=== PATIENT | male | born 1990 | race Caucasian/White ===

== ENCOUNTER 2016-10-07 22:25 | Emergency (ER) | payer OTHER ==
[~2016-10-07] VITALS: Ht 182.9 cm; Wt 82.8 kg
[~2016-10-07 22:25] MED LIST: MELO15TA3 PO
[2016-10-07 22:29] VITALS: Ht 182.9 cm; Wt 82.8 kg
[2016-10-07] MEDS ORDERED: SODIUM CHLORIDE 0.9% 1000ML 1,000 ML IV STA ×2 (22:34)
[2016-10-07 22:59] LABS: BASO % 0.3 %; BASO ABS # 0.03 K/uL (0-0.2); COMPLETE YES; EOS % 2.6 %; HEMATOCRIT 42.5 % (42-52); IG% 0.2 %; LYMPH % 34.2 %; LYMPH ABS # 3.89 K/uL (1.2-3.4); MEAN CELL VOLUME 85.9 fL (80-100); MEAN CORPUSCULAR HEMOGLOBIN 29.7 pg (25-34); MEAN CORPUSCULAR HGB CONC 34.6 g/dl (32-36); MEAN PLATELET VOLUME 9.9 fL (7.4-10.4); MONO % 9.6 %; NEUT % 53.1 %; PLATELET COUNT 206 K/uL (130-400); RED BLOOD COUNT 4.95 M/uL (4.7-6.1); WHITE BLOOD COUNT 11.36 K/uL (4.8-10.8)
[2016-10-07 23:10] LABS: INR 0.9 (0.9-1.1); PARTIAL THROMBOPLASTIN RATIO 1.1; PROTHROMBIN TIME (PATIENT) 10.1 SECONDS (9.0-12.0)
[2016-10-07 23:19] LABS: BUN/CREATININE RATIO 17.6 (10-20); CALCIUM 9.3 mg/dl (8.5-10.1); CREATININE 1.4 mg/dl (0.60-1.40); POTASSIUM 3.7 mmol/L (3.5-5.1)
[2016-10-07 23:39] LABS: URINE APPEARANCE CLEAR (CLEAR); URINE BILIRUBIN NEG (NEG); URINE COLOR YELLOW; URINE NITRITE NEG (NEG); URINE PH 5.5 (4.5-7.5); URINE SPECIFIC GRAVITY 1.025 (1.000-1.030); UROBILINOGEN NEG (NEG); ZZUR CULT IF INDIC CLEAN CATCH NO
[2016-10-07 23:40] LABS: MANUAL MICROSCOPIC REQUIRED? NO; REVIEW REQ? NO
[2016-10-07] MEDS ORDERED: OPTIRAY 320 IV PRN (23:45)
[2016-10-07] MEDS ORDERED: MoRPHine SULFATE 4 MG/ML 1 ML CARP\\VIAL IV STA (23:53)
[2016-10-07] MEDS ORDERED: ONDANSETRON INJ 2 MG/ML 2 ML VIAL IV STA (23:53)
[2016-10-08] MEDS ORDERED: CITA40TA12 PO (00:13)
[2016-10-08] MEDS ORDERED: QUET1TAB34 PO (00:15)
[2016-10-08] MEDS ORDERED: LORA-741 PO (00:15)
[2016-10-08] MEDS ORDERED: SUMA100T16 PO (00:16)
[2016-10-08] MEDS ORDERED: VNTHFA/IN INH (00:17)
[2016-10-08] MEDS ORDERED: PRAZ1CAP10 PO (00:18)
[2016-10-08] MEDS ORDERED: CEFTRIAXONE SOD INJ 1 GM ADDVIAL IV STA (01:04)
[2016-10-08] MEDS ORDERED: SULF800T23 PO (01:09)
--- NOTE | 2016-10-08 01:12 | EMERGENCY ROOM VISIT NOTE ---
History First contact with patient: 22:31 Chief Complaint: HEMATURIA Stated Complaint: ABDOMINAL PAIN, URINATING BLOOD Nursing Triage Summary: Hematuria and abdominal pain that started today. History of Present Illness The patient is a 26 year old male who presents to the Emergency Room with complaints of hematuria with suprapubic discomfort for the past day. Patient states she's been having gross hematuria for the past day. He is and working a lot outside for the past 2 days. He does yard work for a living. Patient does smoke. No history of similar symptoms in the past. Patient denies chest pain, dyspnea, back pain, testicular pain, penile pain, fever, chills, IV drug abuse. Patient denies risk for STI's. Review of Systems See HPI for pertinent positives & negatives. A total of 10 systems reviewed and were otherwise negative. Past Medical/Surgical History Medical Problems: (1) Chronic back pain (2) Pain, dental Asthma Social History Smoking Status: Current Every Day Smoker Alcohol Use: occasionally Drug Use: none Marital Status: Housing Status: lives with family Occupation Status: employed Current/Historical Medications Scheduled Citalopram Hydrobromide (Celexa), 40 MG PO DAILY Lorazepam (Ativan), 0.5 MG PO Q6H Prazosin Hcl (Prazosin), 1 MG PO QPM Quetiapine Fumarate (Seroquel), 100 MG PO HS Sulfa/Trimethoprim (Bactrim Ds 800MG/160MG), 1 TAB PO BID Sumatriptan Succinate (Imitrex), 100 MG PO PRN/UD Scheduled PRN Albuterol Hfa (Ventolin Hfa), 2 PUFFS INH Q6H PRN for SOB/Wheezing Allergies Coded Allergies: No Known Allergies (Unverified , 10/07/16) Physical Exam Vital Signs Date Time Temp Pulse Resp B/P (MAP) Pulse Ox O2 Delivery O2 Flow Rate FiO2 10/08/16 01:37 37.0 72 16 128/74 97 10/08/16 00:00 92 16 126/68 97 Room Air 10/07/16 22:29 36.7 103 16 136/80 96 Room Air Physical Exam VITALS: Vitals are noted on the nurse's note and reviewed by myself. Vital signs stable. GENERAL: Pleasant male, in no acute distress, nondiaphoretic, well-developed well-nourished. SKIN: The skin was without rashes, erythema, edema, or bruising. There is no tenting of the skin. Capillary reflex less than 2 seconds. HEAD: Normocephalic atraumatic. EARS: External auditory canals clear, tympanic membranes pearly polo without erythema or effusion bilaterally. EYES: Pupils equal round and reactive to light and accommodation. Conjunctivae without injection, sclerae without icterus. Extraocular movements intact. NOSE: Patent, turbinates without inflammation or discharge. MOUTH: Mucous membranes moist. Pharynx without erythema or exudate. Uvula midline. Airway patent. Tongue does not deviate. NECK: Supple without nuchal rigidity. No lymphadenopathy. No thyromegaly. Cervical spine is nontender. No JVD. HEART: Regular rate and rhythm without murmurs gallops or rubs. LUNGS: Clear to auscultation bilaterally without wheezes, rales or rhonchi. No dullness to percussion. No retractions or accessory muscle use. ABDOMEN: Positive bowel sounds x 4. Normal tympanic percussion. Soft, minimal bladder discomfort, without masses or organomegaly. Morales sign negative. No guarding or rebound tenderness. No CVA tenderness MUSCULOSKELETAL: No muscle atrophy, erythema, or edema noted. NEURO: Patient was alert and oriented to person place and time. Normal sensation to light and sharp touch. No focal neurological deficits. Medical Decision & Procedures Laboratory Results 10/07/16 22:45 Red Blood Count 4.95, Mean Corpuscular Volume 85.9, Mean Corpuscular Hemoglobin 29.7, Mean Corpuscular Hemoglobin Concent 34.6, Mean Platelet Volume 9.9, Neutrophils (%) (Auto) 53.1, Lymphocytes (%) (Auto) 34.2, Monocytes (%) (Auto) 9.6, Eosinophils (%) (Auto) 2.6, Basophils (%) (Auto) 0.3, Neutrophils # (Auto) 6.03, Lymphocytes # (Auto) 3.89, Monocytes # (Auto) 1.09, Eosinophils # (Auto) 0.30, Basophils # (Auto) 0.03 10/07/16 22:45 Test 10/07/16 22:43 10/07/16 22:45 Urine Color YELLOW Urine Appearance CLEAR (CLEAR) Urine pH 5.5 (4.5-7.5) Urine Specific [place] 1.025 (1.000-1.030) Urine Protein TRACE (NEG) Urine Glucose (UA) NEG (NEG) Urine Ketones NEG (NEG) Urine Occult Blood 3+ (NEG) Urine Nitrite NEG (NEG) Urine Bilirubin NEG (NEG) Urine Urobilinogen NEG (NEG) Urine Leukocyte Esterase NEG (NEG) Urine WBC (Auto) 5-10 /hpf (0-5) Urine RBC (Auto) >30 /hpf (0-4) Urine Hyaline Casts (Auto) 1-5 /lpf (0-5) Urine Epithelial Cells (Auto) 10-20 /lpf (0-5) Urine Bacteria (Auto) NEG (NEG) White Blood Count 11.36 K/uL (4.8-10.8) Red Blood Count 4.95 M/uL (4.7-6.1) Hemoglobin 14.7 g/dL (14.0-18.0) Hematocrit 42.5 % (42-52) Mean Corpuscular Volume 85.9 fL (80-100) Mean Corpuscular Hemoglobin 29.7 pg (25-34) Mean Corpuscular Hemoglobin Concent 34.6 g/dl (32-36) Platelet Count 206 K/uL (130-400) Mean Platelet Volume 9.9 fL (7.4-10.4) Neutrophils (%) (Auto) 53.1 % Lymphocytes (%) (Auto) 34.2 % Monocytes (%) (Auto) 9.6 % Eosinophils (%) (Auto) 2.6 % Basophils (%) (Auto) 0.3 % Neutrophils # (Auto) 6.03 K/uL (1.4-6.5) Lymphocytes # (Auto) 3.89 K/uL (1.2-3.4) Monocytes # (Auto) 1.09 K/uL (0.11-0.59) Eosinophils # (Auto) 0.30 K/uL (0-0.5) Basophils # (Auto) 0.03 K/uL (0-0.2) RDW Standard Deviation 42.5 fL (36.4-46.3) RDW Coefficient of Variation 13.6 % (11.5-14.5) Immature Granulocyte % (Auto) 0.2 % Immature Granulocyte # (Auto) 0.02 K/uL (0.00-0.02) Prothrombin Time 10.1 SECONDS (9.0-12.0) Prothromb Time International Ratio 0.9 (0.9-1.1) Activated Partial Thromboplast Time 29.2 SECONDS (21.0-31.0) Partial Thromboplastin Ratio 1.1 Anion Gap 9.0 mmol/L (3-11) Est Creatinine Clear Calc Drug Dose 86.2 ml/min Estimated GFR () 78.7 Estimated GFR (Non- 67.9 BUN/Creatinine Ratio 17.6 (10-20) Calcium Level 9.3 mg/dl (8.5-10.1) Total Bilirubin 0.6 mg/dl (0.2-1) Direct Bilirubin 0.1 mg/dl (0-0.2) Aspartate Amino Transf (AST/SGOT) 95 U/L (15-37) Alanine Aminotransferase (ALT/SGPT) 153 U/L (12-78) Alkaline Phosphatase 88 U/L (45-117) Total Creatine Kinase 999 U/L (39-308) Total Protein 7.7 gm/dl (6.4-8.2) Albumin 4.0 gm/dl (3.4-5.0) Hepatitis B Surface Antigen NEG (NEG) Hepatitis C Antibody PRELIM POS (NEG) Medications Administered Medications (Trade) Dose Ordered Sig/Glenda Route Start Time Stop Time Status Last Admin Dose Admin Sodium Chloride 1,000 ml @ 999 mls/hr Q1H1M STAT IV 10/07/16 22:34 10/07/16 23:34 DC 10/07/16 22:46 999 MLS/HR Sodium Chloride 1,000 ml @ 125 mls/hr Q8H STAT IV 10/07/16 22:34 10/08/16 01:41 DC 10/07/16 23:59 125 MLS/HR Morphine Sulfate (MoRPHine SULFATE INJ) 4 mg NOW STAT IV 10/07/16 23:53 10/07/16 23:54 DC 10/07/16 23:59 4 MG Ondansetron HCl (Zofran Inj) 4 mg NOW STAT IV 10/07/16 23:53 10/07/16 23:54 DC 10/07/16 23:59 4 MG Ceftriaxone Sodium (Rocephin Inj) 1 gm NOW STAT IV 10/08/16 01:04 10/08/16 01:05 DC 10/08/16 01:11 1 GM Trimethoprim/ Sulfamethoxazole (Sulfameth/ Trimeth Ds 800/ 160MG Home Pack) 1 homepack UD ONCE PO 10/08/16 01:15 10/08/16 01:16 DC 10/08/16 01:34 1 HOMEPACK ED Course Prior records/ancillary studies reviewed and summarized above. Nursing notes reviewed. Additional history obtained from family. The patient's history was concerning for hematuria and suprapubic discomfort. Differential diagnosis: Etiologies such as rhabdomyolysis, kidney disease, bladder problem, metabolic, infection, hypo/hyperglycemia, electrolyte abnormalities, cardiac sources, intracerebral event, toxicologic, neurologic, as well as others were entertained. Physical examination: As above. ER treatment provided: IV Lock IV fluids On reassessment the patient felt better. Diagnostics interpretation by me: The labs revealed elevated CPK in LFTs. Hepatitis panel was ordered. Hepatitis C came back positive. Patient was still here. Patient does have a history of IV drug abuse. Nothing recent. He states he'll follow-up with his family care Dr. for the hepatitis C results. Urine shows hematuria with some white blood cells and culture was sent Imaging studies: CT ABDOMEN & PELVIS: Small peripheral regions of hypoenhancement of bilateral kidneys, suspicious for pyelonephritis. No hydronephrosis. Bladder is unremarkable. Mild periportal edema, nonspecific but considerations include fluid overload or liver disease/hepatitis. Spleen is mildly enlarged. No free air or free fluid. No evidence Exam and history seem consistent with pyelonephritis and positive hepatitis C. Patient is requesting to leave. I felt this is reasonable he was afebrile and nontoxic. He is well-appearing. He is tolerating fluids. He was offered admission. He was advised to see the family care doctor tomorrow or here in the ER sooner for fevers, vomiting, pain, worsening signs or symptoms or as needed. Patient was neurovascularly and neurologically intact. He is well- appearing. By the evaluation outlined above emergent etiologies such as electrolyte abnormalities, cardiac sources, intracerebral event, toxologic, neurologic, abnormalities blood glucose, metabolic, as well as others were deemed relatively unlikely. The pt informed about the findings as listed above. All questions were answered and pleased with the treatment. Return instructions were outlined and the patient was discharged in stable condition. Outpatient prescription management: Bactrim Referral: The patient was referred to primary care physician for follow-up in 4 hours for a recheck of the current condition. Case reviewed with my attending Medical Decision As above Impression Primary Impression: Pyelonephritis Departure Information Prescriptions Sulfa/Trimethoprim (Bactrim Ds 800MG/160MG) Tab 1 TAB PO BID for 7 Days, #14 TAB Prov: Rozina Mckeon PA-C 10/08/16 Referrals Michael Cast M.D. (PCP) Patient Instructions My [facility]
[2016-10-08] MEDS ORDERED: SEPTRA DS HOME PACK 1 EA VIAL PO ONE (01:15)
[2016-10-08 01:37] VITALS: BP 128/74; PULSE 72; TEMP 37; O2SAT 97
--- NOTE | 2016-10-08 07:03 | DIAGNOSTIC IMAGING REPORT ---
CT OF THE ABDOMEN AND PELVIS WITH CONTRAST CLINICAL HISTORY: Haematuria. Abdominal pain. COMPARISON STUDY: Renal ultrasound October 07, 2016. TECHNIQUE: Following IV administration of 117 mL of Optiray-320, axial images of the abdomen and pelvis were obtained from the lung bases to the proximal femurs. Images were reviewed in the axial, sagittal, and coronal planes. IV contrast was administered without complication. CT DOSE: 372.10 mGy.cm FINDINGS: Lung bases are clear. There is mild splenomegaly. Mild periportal edema is noted. There is no biliary or pancreatic ductal dilatation. There is no hydronephrosis. There are multiple hypoenhancing foci within each kidney. There is no perinephric infiltration. There is no renal abscess. Both nephrograms are heterogeneous. The caliber and wall thickness of small and large bowel are normal. The appendix is normal. There is no free fluid. There is no lymphadenopathy. Skeletal structures are unremarkable. IMPRESSION: 1. Heterogeneous bilateral nephrograms with multiple hypoenhancing foci within each kidney. The findings may reflect pyelonephritis but are nonspecific and the differential includes other etiologies such as interstitial nephritis. Findings could be correlated with urinalysis. No renal abscess. No hydronephrosis. 2. Mild splenomegaly. Electronically signed by: Jaun Dunn M.D. 10/08/2016 7:01 AM Dictated Date/Time: 10/08/2016 6:54 AM
--- NOTE | 2016-10-08 07:15 | DIAGNOSTIC IMAGING REPORT ---
ULTRASOUND KIDNEYS AND BLADDER CLINICAL HISTORY: Hematuria. Pelvic pain. COMPARISON STUDY: No priors. TECHNIQUE: Real-time, grayscale, and color flow sonography of the kidneys and bladder is performed. Images are reviewed in the transverse and longitudinal planes. FINDINGS: Kidneys: The kidneys are normal in size and echotexture. The right kidney measures 11.3 cm in length and the left kidney measures 10.8 cm in length. There is no hydronephrosis. No shadowing renal calculi are identified. There is no sonographic evidence of contour deforming renal mass lesion. No perinephric fluid is identified. Bladder: The bladder is decompressed and grossly unremarkable. Bilateral ureteral jets were seen. IMPRESSION: Unremarkable sonographic assessment of the kidneys and bladder. Electronically signed by: Tommy Gimenez M.D. 10/08/2016 7:13 AM Dictated Date/Time: 10/08/2016 7:12 AM
[2016-10-10 22:40] LABS: HEPATITIS C RNA TMA QUAL Detected
== END 2016-10-08 01:39 | disposition home or self-care (01) ==
LOC: C.EDB 22:26 → C.EDC 10-08 01:39
DX: N12 Tubulo-interstitial nephritis, not specified as acute or chronic (principal); M54.9 Dorsalgia, unspecified; G89.29 Other chronic pain; J45.909 Unspecified asthma, uncomplicated; F17.210 Nicotine dependence, cigarettes, uncomplicated; Z79.899 Other long term (current) drug therapy

== ENCOUNTER 2016-10-17 19:52 | Emergency (ER) | payer OTHER ==
[~2016-10-17] VITALS: Ht 182.9 cm; Wt 77.8 kg
[~2016-10-17 19:52] MED LIST changes: +CITA40TA12 PO; +LORA-741 PO; -MELO15TA3 PO; +PRAZ1CAP10 PO; +QUET1TAB34 PO; +SUMA100T16 PO; +VNTHFA/IN INH
[2016-10-17 19:56] VITALS: TEMP 36.8; Ht 182.9 cm; Wt 77.8 kg
[2016-10-17] MEDS ORDERED: ONDANSETRON INJ 2 MG/ML 2 ML VIAL IV STA ×2 (20:09→21:37)
[2016-10-17] MEDS ORDERED: SODIUM CHLORIDE 0.9% 1000ML 2,000 ML IV STA (20:09)
--- NOTE | 2016-10-17 20:22 | EMERGENCY ROOM VISIT NOTE ---
History Report prepared by Mary: Vee Sheffield Under the Supervision of: Dr. Lion Jimenez D.O. First contact with patient: 20:02 Chief Complaint: ABDOMINAL PAIN Stated Complaint: ABD PAIN,VOMITING History of Present Illness The patient is a 26 year old male who presents to the Emergency Room with complaints of persistent abdominal pain for the past 2 days. He is accompanied by his . He rates his pain as a 6/10 in severity. He denies any flank pain or back pain. The patient was seen here last week for similar symptoms, as well as hematuria, and was diagnosed with a kidney infection and prescribed Bactrim. He states since then, his pain has not improved and he has also been vomiting for the past 2 days. He denies any recent dysuria or hematuria. He denies any recent ETOH use but admits to a history of Hepatitis C and states he does not currently take medication for it. The patient admits to some recent chills but denies any fevers. He notes he does not currently have a PCP as he was recently discharged from Dr. Garza's service. 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 A total of 10 systems reviewed and were otherwise negative. Past Medical & Surgical Medical Problems: (1) Chronic back pain (2) Hepatitis C (3) Pain, dental Social History Smoking Status: Current Every Day Smoker Alcohol Use: occasionally Drug Use: none Marital Status: Housing Status: lives with family Occupation Status: employed Current/Historical Medications Scheduled Citalopram Hydrobromide (Celexa), 40 MG PO DAILY Lorazepam (Ativan), 0.5 MG PO Q6H Ondasetron Odt (Zofran Odt), 4 MG SL Q6H Prazosin Hcl (Prazosin), 1 MG PO QPM Quetiapine Fumarate (Seroquel), 100 MG PO HS Sumatriptan Succinate (Imitrex), 100 MG PO PRN/UD Scheduled PRN Albuterol Hfa (Ventolin Hfa), 2 PUFFS INH Q6H PRN for SOB/Wheezing Allergies Coded Allergies: No Known Allergies (Unverified , 10/07/16) Physical Exam Vital Signs Date Time Temp Pulse Resp B/P (MAP) Pulse Ox O2 Delivery O2 Flow Rate FiO2 10/17/16 22:27 70 16 117/76 98 10/17/16 21:34 64 16 132/77 99 Room Air 10/17/16 21:00 57 10/17/16 19:56 36.8 82 20 145/82 97 Room Air Physical Exam GENERAL: Patient is awake, alert, somewhat anxious appearing and uncomfortable. The patient appears to be in some distress. EYES: The conjunctivae are clear. The pupils are round and reactive. EARS, NOSE, MOUTH AND THROAT: The nose is without any evidence of any deformity. Mucous membranes are moist tongue is midline NECK: The neck is nontender and supple. RESPIRATORY: Normal respiratory effort is noted there is no evidence of wheezing rhonchi or rales CARDIOVASCULAR: Regular rate and rhythm noted there no murmurs rubs or gallops normal S1 normal S2 GASTROINTESTINAL: The abdomen is soft. Bowel sounds are present in all quadrants. Abdomen is nontender MUSCULOSKELETAL/EXTREMITIES: There is no evidence of gross deformity full range of motion is noted in the hips and shoulders SKIN: There is no obvious evidence of any rash. There are no petechiae, pallor or cyanosis noted. NEUROLOGIC: Patient is awake alert and oriented x3 Medical Decision & Procedures ER Provider Diagnostic Interpretation: Radiology results as stated below per my review and radiologist interpretation: PA CHEST RADIOGRAPH AND UPRIGHT AND SUPINE AP RADIOGRAPHS OF THE ABDOMEN CLINICAL HISTORY: Abdominal pain, vomiting and diarrhea. COMPARISON STUDY: CT of the abdomen and pelvis October 08, 2016. FINDINGS: Lung volumes are normal. There is no pneumothorax or pleural effusion. No consolidation is identified. Cardiac size is normal. Mediastinal contours are normal. There is no evidence of pulmonary edema. There is no free air. The bowel gas pattern is normal. A phlebolith within the pelvis is noted. IMPRESSION: 1. No free air or evidence of bowel obstruction. 2. No acute cardiopulmonary findings. Electronically signed by: Jaun Dunn M.D. 10/17/2016 9:00 PM Laboratory Results 10/17/16 20:16 Red Blood Count 5.54, Mean Corpuscular Volume 87.7, Mean Corpuscular Hemoglobin 30.0, Mean Corpuscular Hemoglobin Concent 34.2, Mean Platelet Volume 10.0, Neutrophils (%) (Auto) 44.9, Lymphocytes (%) (Auto) 45.2, Monocytes (%) (Auto) 6.2, Eosinophils (%) (Auto) 3.2, Basophils (%) (Auto) 0.3, Neutrophils # (Auto) 4.96, Lymphocytes # (Auto) 5.00, Monocytes # (Auto) 0.69, Eosinophils # (Auto) 0.35, Basophils # (Auto) 0.03 10/17/16 20:16 Test 10/17/16 20:16 10/17/16 21:35 White Blood Count 11.05 K/uL (4.8-10.8) Red Blood Count 5.54 M/uL (4.7-6.1) Hemoglobin 16.6 g/dL (14.0-18.0) Hematocrit 48.6 % (42-52) Mean Corpuscular Volume 87.7 fL (80-100) Mean Corpuscular Hemoglobin 30.0 pg (25-34) Mean Corpuscular Hemoglobin Concent 34.2 g/dl (32-36) Platelet Count 275 K/uL (130-400) Mean Platelet Volume 10.0 fL (7.4-10.4) Neutrophils (%) (Auto) 44.9 % Lymphocytes (%) (Auto) 45.2 % Monocytes (%) (Auto) 6.2 % Eosinophils (%) (Auto) 3.2 % Basophils (%) (Auto) 0.3 % Neutrophils # (Auto) 4.96 K/uL (1.4-6.5) Lymphocytes # (Auto) 5.00 K/uL (1.2-3.4) Monocytes # (Auto) 0.69 K/uL (0.11-0.59) Eosinophils # (Auto) 0.35 K/uL (0-0.5) Basophils # (Auto) 0.03 K/uL (0-0.2) RDW Standard Deviation 44.3 fL (36.4-46.3) RDW Coefficient of Variation 13.7 % (11.5-14.5) Immature Granulocyte % (Auto) 0.2 % Immature Granulocyte # (Auto) 0.02 K/uL (0.00-0.02) Red Blood Cell Morphology Unremarkable Anion Gap 7.0 mmol/L (3-11) Est Creatinine Clear Calc Drug Dose 100.6 ml/min Estimated GFR () 94.8 Estimated GFR (Non- 81.8 BUN/Creatinine Ratio 8.7 (10-20) Calcium Level 9.6 mg/dl (8.5-10.1) Total Bilirubin 0.5 mg/dl (0.2-1) Direct Bilirubin 0.1 mg/dl (0-0.2) Aspartate Amino Transf (AST/SGOT) 53 U/L (15-37) Alanine Aminotransferase (ALT/SGPT) 110 U/L (12-78) Alkaline Phosphatase 81 U/L (45-117) Total Creatine Kinase 120 U/L (39-308) Total Protein 8.8 gm/dl (6.4-8.2) Albumin 4.1 gm/dl (3.4-5.0) Lipase 199 U/L (73-393) Urine Color DK YELLOW Urine Appearance CLEAR (CLEAR) Urine pH 6.5 (4.5-7.5) Urine Specific [place] 1.028 (1.000-1.030) Urine Protein NEG (NEG) Urine Glucose (UA) NEG (NEG) Urine Ketones TRACE (NEG) Urine Occult Blood NEG (NEG) Urine Nitrite NEG (NEG) Urine Bilirubin NEG (NEG) Urine Urobilinogen NEG (NEG) Urine Leukocyte Esterase NEG (NEG) Laboratory results per my review. Medications Administered Medications (Trade) Dose Ordered Sig/Glenda Route Start Time Stop Time Status Last Admin Dose Admin Ondansetron HCl (Zofran Inj) 4 mg NOW STAT IV 10/17/16 20:09 10/17/16 20:11 DC 10/17/16 20:35 4 MG Sodium Chloride 2,000 ml @ 999 mls/hr Q2H1M STAT IV 10/17/16 20:09 10/17/16 22:09 DC 10/17/16 20:35 999 MLS/HR Ondansetron HCl (Zofran Inj) 4 mg NOW STAT IV 10/17/16 21:37 10/17/16 21:38 DC 10/17/16 21:41 4 MG Morphine Sulfate (MoRPHine SULFATE INJ) 4 mg Q15M PRN IV 10/17/16 21:45 10/17/16 22:54 DC 10/17/16 21:41 4 MG Ondansetron HCl (ZOFRAN ODT 4MG Home Pack) 1 homepack UD ONCE PO 10/17/16 22:15 10/17/16 22:16 DC 10/17/16 22:24 1 HOMEPACK ED Course 2007: The patient was evaluated in room C7. A complete history and physical examination were performed. 2008: NSS 2000 ml @ 999 mls/hr IV, Zofran 4 mg IV. 2136: Zofran 4 mg IV. 2144: Morphine Sulfate 4 mg IV. 2154: I reevaluated the patient. He is feeling much better. I discussed his results and discharge instructions and he and his verbalized complete understanding and agreement. 5: Zofran 4 mg 1 homepack PO. Medical Decision Medication Reconciliation: I attest that I have personally reviewed the patient' s current medications list. Patient was found to have a slightly elevated blood pressure due to circumstances. I do not believe that the patient requires hypertension monitoring. Prior records/ancillary studies reviewed. Triage Nursing notes reviewed. The patient's history was concerning for abdominal pain. Differential diagnosis: Etiologies such as appendicitis, diverticulitis, PUD, biliary pathology, UTI, pancreatitis, obstruction, mesenteric ischemia, aortic pathology, infections, inflammatory bowel disease, renal colic, as well as others were entertained. The patient is a 26-year-old male who presented to the emergency department for an evaluation of nausea vomiting. The patient was seen in our facility recently with similar complaints. At that time he was found have some abnormalities with his kidneys and as well as hematuria. The patient does not have a follow-up scheduled appointment. I discussed patient's laboratory and radiographic studies with him. He was treated with IV fluids in the emergency department. On subsequent reevaluation he was feeling somewhat better. I discussed his case with the emergency Department behavioral health case manager. They will attempt to ensure follow- up with primary care physician as well as a interior wall assembler. Impression Primary Impression: Nausea & vomiting Additional Impression: Dehydration Scribe Attestation The scribe's documentation has been prepared under my direction and personally reviewed by me in its entirety. I confirm that the note above accurately reflects all work, treatment, procedures, and medical decision making performed by me. Departure Information Dispostion Home / Self-Care Prescriptions Ondasetron Odt (ZOFRAN ODT) 4 Mg Tab 4 MG SL Q6H for Nausea, #20 TAB Prov: Lion Jimenez, DO 10/17/16 Patient Instructions ED Nausea Vomiting, My [facility] Additional Instructions Call your primary care physician to schedule follow-up appointment. Also with the interior wall assembler as soon as possible regarding the CAT scan report and the abnormalities noted on your kidneys when you're previous emergency department visit. Drink plenty clear liquids. Continue all medications as prescribed. Problem Qualifiers Primary Impression: Nausea & vomiting Vomiting type: unspecified Vomiting Intractability: non-intractable Qualified Codes: R11.2 - Nausea with vomiting, unspecified
[2016-10-17 20:32] LABS: HEMATOCRIT 48.6 % (42-52); MEAN CELL VOLUME 87.7 fL (80-100); MEAN CORPUSCULAR HGB CONC 34.2 g/dl (32-36); PLATELET COUNT 275 K/uL (130-400); RED BLOOD COUNT 5.54 M/uL (4.7-6.1); WHITE BLOOD COUNT 11.05 K/uL (4.8-10.8)
[2016-10-17 20:50] LABS: BASO % 0.3 %; BASO ABS # 0.03 K/uL (0-0.2); CALCIUM 9.6 mg/dl (8.5-10.1); COMPLETE YES; EOS % 3.2 %; IG% 0.2 %; LYMPH % 45.2 %; MONO % 6.2 %; NEUT % 44.9 %; POTASSIUM 3.6 mmol/L (3.5-5.1)
[2016-10-17 20:52] LABS: BUN/CREATININE RATIO 8.7 (10-20); CREATININE 1.2 mg/dl (0.60-1.40)
--- NOTE | 2016-10-17 21:02 | DIAGNOSTIC IMAGING REPORT ---
PA CHEST RADIOGRAPH AND UPRIGHT AND SUPINE AP RADIOGRAPHS OF THE ABDOMEN CLINICAL HISTORY: Abdominal pain, vomiting and diarrhea. COMPARISON STUDY: CT of the abdomen and pelvis October 08, 2016. FINDINGS: Lung volumes are normal. There is no pneumothorax or pleural effusion. No consolidation is identified. Cardiac size is normal. Mediastinal contours are normal. There is no evidence of pulmonary edema. There is no free air. The bowel gas pattern is normal. A phlebolith within the pelvis is noted. IMPRESSION: 1. No free air or evidence of bowel obstruction. 2. No acute cardiopulmonary findings. Electronically signed by: Jaun Dunn M.D. 10/17/2016 9:00 PM Dictated Date/Time: 10/17/2016 8:59 PM
[2016-10-17 21:42] LABS: URINE APPEARANCE CLEAR (CLEAR); URINE BILIRUBIN NEG (NEG); URINE COLOR DK YELLOW; URINE NITRITE NEG (NEG); URINE PH 6.5 (4.5-7.5); URINE SPECIFIC GRAVITY 1.028 (1.000-1.030); UROBILINOGEN NEG (NEG)
[2016-10-17] MEDS ORDERED: MoRPHine SULFATE 4 MG/ML 1 ML CARP\\VIAL IV PRN (21:45)
[2016-10-17 21:49] LABS: MANUAL MICROSCOPIC REQUIRED? NO; REVIEW REQ? NO
[2016-10-17] MEDS ORDERED: ONDA4TAB10 SL (22:06)
[2016-10-17] MEDS ORDERED: ONDANSETRON HOME PACK 4MG OD TAB PO ONE (22:15)
[2016-10-17 22:27] VITALS: BP 117/76; PULSE 70; O2SAT 98
== END 2016-10-17 22:28 | disposition home or self-care (01) ==
LOC: C.EDB 19:53 → C.EDC 22:28
DX: R11.2 Nausea with vomiting, unspecified (principal); E86.0 Dehydration; G89.29 Other chronic pain; M54.9 Dorsalgia, unspecified; B19.20 Unspecified viral hepatitis C without hepatic coma; F17.200 Nicotine dependence, unspecified, uncomplicated; Z79.899 Other long term (current) drug therapy

== ENCOUNTER 2017-02-09 19:10 | Emergency (ER) | payer OTHER ==
[~2017-02-09] VITALS: Ht 182.9 cm; Wt 85.2 kg
[~2017-02-09 19:10] MED LIST changes: +ONDA4TAB10 SL
[2017-02-09 19:22] VITALS: TEMP 36.8; Ht 182.9 cm; Wt 85.2 kg
[2017-02-09] MEDS ORDERED: METHYLPREDNISOLONE 125 MG VIAL IV STA (19:56)
[2017-02-09] MEDS ORDERED: ALBUT/IPRATROP 3MG/0.5MG NEB 3 ML VIAL INH ONE (20:00)
[2017-02-09 20:14] LABS: BASO % 0.2 %; BASO ABS # 0.02 K/uL (0-0.2); COMPLETE YES; EOS % 5.3 %; HEMATOCRIT 44.6 % (42-52); IG% 0.2 %; LYMPH % 45.9 %; MEAN CELL VOLUME 86.8 fL (80-100); MEAN CORPUSCULAR HEMOGLOBIN 31.7 pg (25-34); MEAN CORPUSCULAR HGB CONC 36.5 g/dl (32-36); MEAN PLATELET VOLUME 10.4 fL (7.4-10.4); MONO % 8.2 %; NEUT % 40.2 %; PLATELET COUNT 206 K/uL (130-400); RED BLOOD COUNT 5.14 M/uL (4.7-6.1); WHITE BLOOD COUNT 8.94 K/uL (4.8-10.8)
[2017-02-09 20:33] LABS: BUN/CREATININE RATIO 9.7 (10-20); CALCIUM 9.1 mg/dl (8.5-10.1); POTASSIUM 3.8 mmol/L (3.5-5.1)
--- NOTE | 2017-02-09 20:35 | DIAGNOSTIC IMAGING REPORT ---
TWO VIEW CHEST CLINICAL HISTORY: Productive cough. Dyspnea. FINDINGS: PA and lateral chest radiographs are compared to study dated 10/17/2016. The cardiomediastinal silhouette is unremarkable. The lungs and pleural spaces are clear. There is no pneumothorax. The bony thorax appears intact. IMPRESSION: No active disease in the chest. Electronically signed by: Tommy Gimenez M.D. 02/09/2017 8:33 PM Dictated Date/Time: 02/09/2017 8:33 PM
[2017-02-09] MEDS ORDERED: PRED50TA PO (21:54)
[2017-02-09] MEDS ORDERED: IPRASOL4 INH (21:54)
[2017-02-09] MEDS ORDERED: NEBMAC (21:54)
--- NOTE | 2017-02-09 21:56 | EMERGENCY ROOM VISIT NOTE ---
History First contact with patient: 19:46 Chief Complaint: RESPIRATORY PROBLEMS Stated Complaint: PROBLEM BREATHING/ASTHMA Nursing Triage Summary: cough and wheeze for 1 week History of Present Illness The patient is a 27 year old male who presents to the Emergency Room with complaints of a productive cough with clear sputum and shortness of breath for approximately 1 week. Patient denies any ear or chills. He has a history of asthma. He has tried his rescue inhaler with minimal/temporary relief. He denies any chest pain or pressure. Review of Systems 10 system review performed and negative unless noted in HPI or below Past Medical/Surgical History Medical Problems: (1) Chronic back pain (2) Hepatitis C (3) Pain, dental Social History Smoking Status: Current Every Day Smoker Alcohol Use: occasionally Drug Use: none Marital Status: Housing Status: lives with family Occupation Status: employed Current/Historical Medications Scheduled Ipratropium-Albuterol (Duoneb), 1 TREATMENT INH Q4H Prednisone (Prednisone), 50 MG PO DAILY Scheduled PRN Albuterol Hfa (Ventolin Hfa), 2 PUFFS INH Q6H PRN for SOB/Wheezing Durable Medical Equipment Nebulizer Machine (Home Use) (Nebulizer Machine (Home Use) ), EA N/A UD Physical Exam Vital Signs Date Time Temp Pulse Resp B/P (MAP) Pulse Ox O2 Delivery O2 Flow Rate FiO2 02/09/17 22:09 96 20 140/83 98 02/09/17 19:23 Room Air 02/09/17 19:22 36.8 104 16 131/74 99 Room Air Physical Exam VITALS: Vitals are noted on the nurse's note and reviewed by myself. Vital signs stable. GENERAL: 27-year-old male, in no acute distress, nondiaphoretic, well-developed well-nourished. SKIN: The skin was without rashes, erythema, edema, or bruising. HEAD: Normocephalic atraumatic. MOUTH: Mucous membranes slightly dry NECK: Supple without nuchal rigidity. No lymphadenopathy. No JVD. HEART: Regular rate and rhythm without murmurs gallops or rubs. LUNGS: Diffuse wheezing in all lung anderson. No crackles or rhonchi. No tachypnea.. ABDOMEN: Positive bowel sounds x 4.Soft, nontender, without organomegaly. No guarding or rebound tenderness. MUSCULOSKELETAL: No muscle atrophy, erythema, or edema noted. Strength 5/5 throughout. NEURO: Patient was alert and oriented to person place and time. Normal sensation to touch. No focal neurological deficits. Medical Decision & Procedures ER Provider Diagnostic Interpretation: TWO VIEW CHEST CLINICAL HISTORY: Productive cough. Dyspnea. FINDINGS: PA and lateral chest radiographs are compared to study dated 10/17/2016. The cardiomediastinal silhouette is unremarkable. The lungs and pleural spaces are clear. There is no pneumothorax. The bony thorax appears intact. IMPRESSION: No active disease in the chest. Laboratory Results 02/09/17 20:04 Red Blood Count 5.14, Mean Corpuscular Volume 86.8, Mean Corpuscular Hemoglobin 31.7, Mean Corpuscular Hemoglobin Concent 36.5, Mean Platelet Volume 10.4, Neutrophils (%) (Auto) 40.2, Lymphocytes (%) (Auto) 45.9, Monocytes (%) (Auto) 8.2, Eosinophils (%) (Auto) 5.3, Basophils (%) (Auto) 0.2, Neutrophils # (Auto) 3.60, Lymphocytes # (Auto) 4.10, Monocytes # (Auto) 0.73, Eosinophils # (Auto) 0.47, Basophils # (Auto) 0.02 02/09/17 20:04 Test 02/09/17 20:04 White Blood Count 8.94 K/uL (4.8-10.8) Red Blood Count 5.14 M/uL (4.7-6.1) Hemoglobin 16.3 g/dL (14.0-18.0) Hematocrit 44.6 % (42-52) Mean Corpuscular Volume 86.8 fL (80-100) Mean Corpuscular Hemoglobin 31.7 pg (25-34) Mean Corpuscular Hemoglobin Concent 36.5 g/dl (32-36) Platelet Count 206 K/uL (130-400) Mean Platelet Volume 10.4 fL (7.4-10.4) Neutrophils (%) (Auto) 40.2 % Lymphocytes (%) (Auto) 45.9 % Monocytes (%) (Auto) 8.2 % Eosinophils (%) (Auto) 5.3 % Basophils (%) (Auto) 0.2 % Neutrophils # (Auto) 3.60 K/uL (1.4-6.5) Lymphocytes # (Auto) 4.10 K/uL (1.2-3.4) Monocytes # (Auto) 0.73 K/uL (0.11-0.59) Eosinophils # (Auto) 0.47 K/uL (0-0.5) Basophils # (Auto) 0.02 K/uL (0-0.2) RDW Standard Deviation 41.7 fL (36.4-46.3) RDW Coefficient of Variation 13.0 % (11.5-14.5) Immature Granulocyte % (Auto) 0.2 % Immature Granulocyte # (Auto) 0.02 K/uL (0.00-0.02) Anion Gap 8.0 mmol/L (3-11) Est Creatinine Clear Calc Drug Dose 119.7 ml/min Estimated GFR () 117.4 Estimated GFR (Non- 101.3 BUN/Creatinine Ratio 9.7 (10-20) Calcium Level 9.1 mg/dl (8.5-10.1) Chemistry Specimen Hemolysis Medications Administered Medications (Trade) Dose Ordered Sig/Glenda Route Start Time Stop Time Status Last Admin Dose Admin Albuterol/ Ipratropium (Duoneb) 12 ml ONE ONCE INH 02/09/17 20:00 02/09/17 20:01 DC 02/09/17 20:13 12 ML Methylprednisolone Sodium Succinate (Solu-Medrol IV) 125 mg NOW STAT IV 02/09/17 19:56 02/09/17 19:58 DC 02/09/17 20:10 125 MG ED Course Patient was seen and examined Vital signs including blood pressure were reviewed medications list was verified with patient Labs were obtained, and a saline lock was established The patient was given an hour-long DuoNeb. He was given Solu-Medrol 125 mg IV Upon reevaluation, he was feeling somewhat better. I reviewed discharge instructions the patient. They voiced understanding and had no further questions. Medical Decision Differential diagnosis: Bronchitis, pneumonia, asthma exacerbation, influenza This patient is a 27-year-old male that presents to the emergency department with complaints of shortness of breath and a productive cough. No pneumonia was noted on the x-ray. This is likely a viral bronchitis causing an asthma exacerbation. The patient was treated with IV fluids, steroids and an hour- long DuoNeb treatment with good relief. He is not hypoxic. Believe he is stable to be discharged home. He was sent home with a prescription for a nebulizer in addition to a short course of steroids. He was advised to follow- up with her primary care physician within the next 2-3 days for recheck. He agrees to return to the emergency department with any new or worsening symptoms. This chart was completed in part utilizing [employer] Speech Voice Recognition software. Attempts were made to minimize the grammatical errors, random word insertions, pronoun errors and incomplete sentences. Any formal questions or concerns about the content, text or information contained within the body of this dictation should be directly addressed to the provider for clarification. Medication Reconcilliation Current Medication List: was personally reviewed by wi Blood Pressure Screening Patient's blood pressure: Normal blood pressure Impression Primary Impression: Asthma exacerbation Departure Information Dispostion Home / Self-Care Condition GOOD Prescriptions Ipratropium-Albuterol (DUONEB) 3 Ml Nebu 1 TREATMENT INH Q4H, #30 DOSE Prov: Kaila Roy PA-C 02/09/17 Nebulizer Machine (Home Use) (NEBULIZER MACHINE (HOME USE) ) Mis EA N/A UD, #1 Prov: Kaila Roy PA-C 02/09/17 Prednisone (Prednisone) 50 Mg Tab 50 MG PO DAILY for 4 Days, #4 TAB Prov: Kaila Roy PA-C 02/09/17 Referrals No Doctor, Assigned (PCP) Patient Instructions [facility] Additional Instructions You were treated in the hospital for a cough and difficulty breathing. This is likely a result of your asthma. There was no pneumonia noted on the x-ray. Please take the entire course of steroids. First dose tomorrow morning. Please use the nebulizer treatment every 6 hours as needed for difficulty breathing Please follow-up with your primary care physician within the next 2 days for recheck Please return to the emergency department with any new or worsening symptoms
[2017-02-09 22:09] VITALS: BP 140/83; PULSE 96; O2SAT 98
== END 2017-02-09 22:10 | disposition home or self-care (01) ==
LOC: C.EDB 19:11 → C.EDA 22:10
DX: J45.901 Unspecified asthma with (acute) exacerbation (principal); B19.20 Unspecified viral hepatitis C without hepatic coma; G89.29 Other chronic pain; F17.200 Nicotine dependence, unspecified, uncomplicated; Z79.899 Other long term (current) drug therapy

== ENCOUNTER 2017-04-05 20:03 | Emergency (ER) | payer SELFPAY ==
[~2017-04-05] VITALS: Ht 182.9 cm; Wt 84.5 kg
[~2017-04-05 20:03] MED LIST changes: -CITA40TA12 PO; +IPRASOL4 INH; -LORA-741 PO; -ONDA4TAB10 SL; -PRAZ1CAP10 PO; -QUET1TAB34 PO; -SUMA100T16 PO
[2017-04-05 20:07] VITALS: BP 145/98; PULSE 92; TEMP 36.7; O2SAT 97; Ht 182.9 cm; Wt 84.5 kg
[2017-04-05] MEDS ORDERED: ALBUTEROL HFA 8 GM INHALER INH STA (20:52)
[2017-04-05] MEDS ORDERED: AZITTAB PO (21:04)
--- NOTE | 2017-04-05 21:07 | EMERGENCY ROOM VISIT NOTE ---
ED Visit Note First contact with patient: 20:38 CHIEF COMPLAINT: Cough HISTORY OF PRESENT ILLNESS: This 27-year-old male presents to the emergency department with complaints of ongoing cough for the past 4 weeks. He reports a history of asthma and states that he feels like he is having more trouble with his breathing than usual. He states the cough often wakes him up at night. He has been using his albuterol nebulizer treatments 3-4 times a day with some improvement. He states the cough has been productive of yellow/brown mucus. The chest feels congested. He denies any chest pain, palpitations, dizziness or passing out, fevers or chills, hemoptysis, abdominal pain, nausea or vomiting , diarrhea, urinary symptoms, rash. He denies any ongoing shortness of breath, but states there are times when he feels like he cannot catch his breath. He does note that his symptoms seem worse when he is at home and better when he is away from home, and reports that he recently moved to a new home about a month or so ago. Patient is an active smoker, states about a half a pack a day, although he notes that he has been smoking much less since his symptoms started. REVIEW OF SYSTEMS: A complete 10 point review of systems was reviewed with the patient with pertinent positives and negatives as per history of present illness. All else were negative. PMH: The patient is healthy; there is no significant medical or surgical history. SOCIAL HISTORY: Patient lives at home. Patient admits to tobacco use, states he smokes one half pack per day cigarettes. PHYSICAL EXAM: Vital Signs: Reviewed Nurse's notes. Oxygen saturation is 97 % on room air, which is normal. CONSTITUTIONAL: No acute distress. Well appearing and well nourished. Alert and oriented X 4 with normal affect. HEENT: Normocephalic, atraumatic. Pupils equal, round and reactive to light, EOMI. TMs normal. Pharynx normal. NECK: Supple, full active range of motion without discomfort. RESPIRATORY: Clear to auscultation bilaterally with no wheezing, crackles, rhonchi or stridor. Equal expansion bilaterally. CARDIOVASCULAR: Regular rate and rhythm with no murmurs, rubs or gallops. Normal peripheral perfusion. No edema. GASTROINTESTINAL: Soft, nontender, nondistended. Bowel sounds present in all quadrants. MUSCULOSKELETAL: Full range of motion of all joints without discomfort. INTEGUMENTARY: No rash or other significant dermatologic conditions noted. NEUROLOGIC: Cranial nerves II-XII grossly intact. No focal neurologic deficits noted. EMERGENCY DEPARTMENT COURSE: I examined the patient. Differential diagnosis includes asthma exacerbation, bronchitis, pneumonia, viral URI, environmental allergies, among others. Patient's lungs are completely clear without wheezing. There is no sign of increased work of breathing, he is not hypoxic or tachypneic. He is noted to have a tight, congested sounding cough. Given his history of smoking, I will cover him with antibiotics, Rx for Z-Lars sent to pharmacy. He also notes that he is running low on his albuterol at home, he was given an albuterol inhaler with spacer here, with improvement in his symptoms after treatment given in the ED. Patient states he currently does not have a primary care provider, but is in the process of getting new health insurance set up. The patient was provided with information for finding a primary care providers that he can contact to get established with a new PCP. Patient was also encouraged to evaluate his home for any signs of mold, excessive dust, new detergents or fragrances, or any other potential allergens that could be triggering his asthma. Patient was educated on all discharge instructions, and was encouraged to return to the ED if his symptoms persist or get worse, he verbalized understanding. The patient was discharged home in stable condition and ambulatory. Patient was noted to be hypertensive on initial vital signs, he did not have repeat vital signs recorded in the chart. He was encouraged to establish a PCP for follow-up and further evaluation of his blood pressure. Problem List Medical Problems: (1) Chronic back pain Status: Chronic (2) Pain, dental Status: Resolved Current/Historical Medications Scheduled Azithromycin (Zithromax Z-Lars), 0 PO UD Ipratropium-Albuterol (Duoneb), 1 TREATMENT INH Q4H Scheduled PRN Albuterol Hfa (Ventolin Hfa), 2 PUFFS INH Q6H PRN for SOB/Wheezing Allergies Coded Allergies: No Known Allergies (Unverified , 02/09/17) Vital Signs Date Time Temp Pulse Resp B/P (MAP) Pulse Ox O2 Delivery O2 Flow Rate FiO2 04/05/17 20:07 36.7 92 20 145/98 97 Afebrile, hypertensive, not tachycardic, not tachypneic, not hypoxic Medications Administered Medications (Trade) Dose Ordered Sig/Glenda Route Start Time Stop Time Status Last Admin Dose Admin Albuterol (Ventolin Hfa Inhaler) 2 puffs NOW STAT INH 04/05/17 20:52 04/05/17 20:54 DC 04/05/17 20:52 2 PUFFS Departure Information Impression Primary Impression: Acute bronchitis Dispostion Home / Self-Care Condition GOOD Prescriptions Azithromycin (ZITHROMAX Z-LARS) 250 Mg Tab 0 PO UD, #1 PKT 2 TABS DAY 1, THEN 1 TAB DAILY FOR 4 DAYS Prov: Lissa FrankelSPARKLE Mcelroy 04/05/17 Referrals No Doctor, Assigned (PCP) Patient Instructions ED Bronchitis Asthmatic, ED Smoking Cessation, ED Upper Resp Infec Abx Tx, My [facility] Additional Instructions You have been evaluated in the emergency department for your cough. You are being placed on antibiotics because you are a smoker and at higher risk for infection. You have been prescribed a Z-Lars, which is an antibiotic to be taken for the next 5 days, take as directed on the packaging. All antibiotics have the potential to cause diarrhea. Stop this medication and contact a medical provider if you were to develop any significant adverse side effects including: wheezing, shortness of breath, passing out, vomiting, or a diffuse rash. Always take antibiotics as directed and COMPLETE the ENTIRE course regardless of the improvement of your symptoms. Use the albuterol inhaler with spacer, TWO puffs every 4 hours as needed for cough, wheezing, chest tightness. You should also use this before bed to help prevent coughing so that you can sleep better at night. For chest pain, you can use the following [id number] medicines (if >12 yo) : - Regular strength (325mg/tab) Tylenol (acetaminophen) 2 tabs every 4-6 hours as needed. Do not exceed 10 tablets in a 24 hour period. Avoid taking more than 3000 mg of Tylenol per day. This includes any other sources of acetaminophen you may take on a regular basis. - Regular strength (200 mg/tab) Advil (ibuprofen) 3 tabs every 6-8 hours as needed. Do not exceed a dose of 2400 mg per day. - For best results, alternate dosing of Tylenol and Advil. You may try taking Benadryl (25 mg) at night, 1-2 tablets as needed for allergy symptoms and congestion. Drink plenty of fluids to stay well hydrated. Please follow-up with your PCP or at an urgent care in the next few days to be rechecked if your symptoms are not getting any better. Please return to the emergency department if your symptoms worsen over the next 2-3 days despite treatment course outlined above. Return to the emergency department if you develop the following symptoms of: inability to swallow solids , liquids, or drool; excessive wheezing or inability to catch your breath; chest pain, coughing up blood, severe dizziness or passing out; fever or pain that becomes unmanageable with [id number] medications; or any other concerns. Work Instructions Return To Work: 1 day Problem Qualifiers Primary Impression: Acute bronchitis Bronchitis organism: unspecified organism Qualified Codes: J20.9 - Acute bronchitis, unspecified
== END 2017-04-05 22:20 | disposition home or self-care (01) ==
LOC: C.EDB 20:05 → C.EDD 22:20
DX: J20.9 Acute bronchitis, unspecified (principal); F17.210 Nicotine dependence, cigarettes, uncomplicated; J45.909 Unspecified asthma, uncomplicated; M54.9 Dorsalgia, unspecified; G89.29 Other chronic pain